=== PATIENT | female | born 1985 | race African-American/Black ===

== ENCOUNTER 2025-05-12 10:33 | Emergency (ER) | payer OTHER ==
[~2025-05-12] VITALS: Ht 167.6 cm; Wt 103.0 kg
[2025-05-12] VITALS (9 sets, daily range): BP systolic 148–161; BP diastolic 89–99; PULSE 22–64; RESP 22–24; TEMP 36.6696–36.83628; O2SAT 98–99
[2025-05-12 11:29] LABS: BASOPHILS % 0.7 % (0.0-2.0); EOSINOPHILS % 4.6 % (0.0-5.0); HEMATOCRIT. 35.0 % (36.0-48.0); HEMOGLOBIN. 11.5 g/dL (12.0-16.0); LYMPHOCYTES % 11.7 % (20.0-50.0); MEAN PLATELET VOLUME 8.3 fl (7.4-10.4); MONOCYTES % 8.3 % (2.0-8.0); NEUTROPHILS % 74.7 % (40.0-76.0); PLATELET 210 x1000/uL (130-400); RED BLOOD CELL COUNT 3.38 mill/uL (4.2-5.4); RED CELL DISTRIBUTION WIDTH 15.2 % (11.6-14.6)
[2025-05-12] MEDS ORDERED: CLONIDINE 0.3MG TABLET PO ONE (11:45)
[2025-05-12 11:48] LABS: UREA NITROGEN BLOOD 83 mg/dL (9-23)
[2025-05-12 11:49] LABS: PROTEIN TOTAL 7.6 g/dL (6.0-8.3)
[2025-05-12 11:50] LABS: ASPARTATE AMINOTRANSFERASE 9 IU/L (<34); BILIRUBIN DIRECT < 0.1 mg/dL (<=3.0)
[2025-05-12 11:51] LABS: BILIRUBIN TOTAL 0.3 mg/dL (0.1-1.0)
[2025-05-12] MEDS: AMLODIPINE 10MG TABLET PO ONE (11:53)
[2025-05-12] MEDS: CLONIDINE 0.1MG TABLET PO NR (11:54)
[2025-05-12 11:57] LABS: TROPONIN I HIGH SENSITIVITY 44 ng/L (3.0-34)
[2025-05-12 11:58] LABS: CREATININE 15.9 mg/dL (0.6-1.0)
[2025-05-12 15:58] LABS: HEPATITIS A AB IGM NEGATIVE (Negative)
[2025-05-12 15:59] LABS: HEPATITIS B CORE AB IGM NEGATIVE (Negative); HEPATITIS C AB NON REACTIVE (Neg) (Negative)
[2025-05-12] MEDS ORDERED: DOCUSATE SODIUM 100MG CAPSULE PO PRN (16:00)
[2025-05-12] MEDS ORDERED: GUAIFENESIN 200MG/10ML SUGAR FREE UDC PO PRN (16:00)
[2025-05-12] MEDS ORDERED: MAGNESIUM/ALUMINUM HYDROXIDE/SIMETHICONE 30ML UDC PO PRN (16:00)
[2025-05-12] MEDS ORDERED: ONDANSETRON HCL 4MG/2ML INJ IV PRN (16:00)
[2025-05-12] MEDS ORDERED: NA PHOS,M-B/NA PHOS,DI-BA ENEMA 118ML PR PRN (16:00)
[2025-05-12] MEDS ORDERED: IPRATROPIUM/ALBUTEROL 0.5-3(2.5)MG/3ML NEB HHN PRN (16:00)
[2025-05-12] MEDS ORDERED: ACETAMINOPHEN 325MG TABLET PO PRN ×2 (16:00)
[2025-05-12] MEDS ORDERED: HYDRALAZINE 20MG/ML VIAL IV PRN (16:15)
[2025-05-12] MEDS ORDERED: SEVELAMER CARBONATE 800 MG TABLET PO SCH (17:00)
[2025-05-12] MEDS ORDERED: ENOXAPARIN 30MG/0.3ML SYR SUBCUT SCH (18:00)
[2025-05-12] MEDS ORDERED: CLONIDINE 0.2MG TABLET PO SCH (21:00)
[2025-05-12] MEDS ORDERED: ATORVASTATIN CALCIUM 40MG TABLET PO SCH (21:00)
[2025-05-13] MEDS ORDERED: FAMOTIDINE 20MG/2ML VIAL IV SCH (09:00)
[2025-05-13] MEDS ORDERED: AMLODIPINE 10MG TABLET PO SCH (09:00)
[2025-05-13] MEDS ORDERED: ASPIRIN 81MG EC TABLET PO SCH (09:00)
== END 2025-05-12 17:25 | disposition left against medical advice (07) ==
LOC: ER 10:33 → EDBEDREQ 14:23 → EDBEDREQTM 14:23 → ENRESERV 15:19 → CANBEDREQ 17:21 → ER 17:25
DX: I13.2 Hypertensive heart and chronic kidney disease with heart failure and with stage 5 chronic kidney disease, or end stage renal disease (principal); E11.22 Type 2 diabetes mellitus with diabetic chronic kidney disease; R06.02 Shortness of breath; D53.9 Nutritional anemia, unspecified; B34.9 Viral infection, unspecified; E66.01 Morbid (severe) obesity due to excess calories; J44.9 Chronic obstructive pulmonary disease, unspecified; N18.6 End stage renal disease; Z68.36 Body mass index [BMI] 36.0-36.9, adult; Z79.01 Long term (current) use of anticoagulants; Z79.899 Other long term (current) drug therapy; Z83.3 Family history of diabetes mellitus; Z86.718 Personal history of other venous thrombosis and embolism; Z88.1 Allergy status to other antibiotic agents; Z88.5 Allergy status to narcotic agent; Z90.49 Acquired absence of other specified parts of digestive tract; Z91.158 Patient's noncompliance with renal dialysis for other reason; Z99.2 Dependence on renal dialysis
CPT/HCPCS: 36415; 71045; 80048; 80076; 83880; 84484; 85025; 86705; 86709; 87340; 90935; 93005; 99291

== ENCOUNTER 2025-05-16 09:12 | Emergency (ER) | payer MEDICAID, OTHER ==
[~2025-05-16] VITALS: Ht 172.7 cm; Wt 100.0 kg
[2025-05-16 09:13] VITALS: O2SAT 100
[2025-05-16] MEDS: NITROGLYCERIN OINT 1GM/INCH UDPKT TD SCH (10:00)
[2025-05-16] MEDS: ACETAMINOPHEN 500MG TABLET PO SCH (10:00)
[2025-05-16 10:08] LABS: BASOPHILS % 1.0 % (0.0-2.0); EOSINOPHILS % 7.9 % (0.0-5.0); HEMATOCRIT. 33.6 % (36.0-48.0); HEMOGLOBIN. 11.2 g/dL (12.0-16.0); LYMPHOCYTES % 18.0 % (20.0-50.0); MEAN PLATELET VOLUME 9.0 fl (7.4-10.4); MONOCYTES % 5.6 % (2.0-8.0); NEUTROPHILS % 67.5 % (40.0-76.0); PLATELET 254 x1000/uL (130-400); RED BLOOD CELL COUNT 3.38 mill/uL (4.2-5.4); RED CELL DISTRIBUTION WIDTH 14.8 % (11.6-14.6)
[2025-05-16] MEDS: HYDRALAZINE 20MG/ML VIAL IV SCH ×2 (10:18→11:12)
[2025-05-16 10:20] LABS: UREA NITROGEN BLOOD 78.0 mg/dL (9-23)
[2025-05-16 10:24] LABS: CREATININE 15.0 mg/dL (0.6-1.0); TROPONIN I HIGH SENSITIVITY 47 ng/L (3.0-34)
[2025-05-16] MEDS: CLONIDINE 0.1MG TABLET PO SCH (11:13)
[2025-05-16] MEDS ORDERED: ONDANSETRON HCL 4MG/2ML INJ IV PRN (11:15)
[2025-05-16] MEDS ORDERED: MAGNESIUM/ALUMINUM HYDROXIDE/SIMETHICONE 30ML UDC PO PRN (11:15)
[2025-05-16] MEDS ORDERED: LABETALOL 5MG/ML 4ML INJ IV PRN (11:15)
[2025-05-16] MEDS ORDERED: CLONIDINE 0.2MG TABLET PO PRN (11:15)
[2025-05-16] MEDS ORDERED: ZOLPIDEM TARTRATE 5MG TABLET PO PRN (11:15)
[2025-05-16] MEDS ORDERED: MORPHINE SULFATE 2 MG/ML INJ (NOT FOR IM USE) IV PRN (11:15)
[2025-05-16] MEDS ORDERED: HYDROCODONE/ACETAMINOPHEN 5/325MG TABLET PO PRN (11:15)
[2025-05-16] MEDS ORDERED: ACETAMINOPHEN 325MG TABLET PO PRN (11:15)
[2025-05-16] MEDS ORDERED: NALOXONE HCL 0.4MG/ML VIAL IV PRN (11:30)
[2025-05-16 11:45] VITALS: BP 240/122; PULSE 98; RESP 17; TEMP 36.8; O2SAT 100
[2025-05-16] MEDS ORDERED: NIFEDIPINE XL 60MG TAB PO SCH (12:00)
[2025-05-16] MEDS ORDERED: HYDRALAZINE HCL 50MG TABLET PO SCH (14:00)
[2025-05-16 14:38] LABS: PHOSPHORUS 6.8 mg/dL (2.5-4.9)
[2025-05-16 15:15] LABS: HEPATITIS A AB IGM NEGATIVE (Negative)
[2025-05-16 15:16] LABS: HEPATITIS B CORE AB IGM NEGATIVE (Negative); HEPATITIS C AB NON REACTIVE (Neg) (Negative)
[2025-05-16] MEDS ORDERED: ENOXAPARIN 30MG/0.3ML SYR SUBCUT SCH (21:00)
[2025-05-17] MEDS ORDERED: PANTOPRAZOLE SODIUM 40 MG/VIAL IV SCH (09:00)
== END 2025-05-16 11:46 | disposition left against medical advice (07) ==
LOC: ER 09:12 → EDBEDREQ 11:03 → EDBEDREQTM 11:03 → ER 11:46 → CMPBEDREQ 12:37
DX: I16.9 Hypertensive crisis, unspecified (principal); I13.2 Hypertensive heart and chronic kidney disease with heart failure and with stage 5 chronic kidney disease, or end stage renal disease; N18.6 End stage renal disease; Z88.5 Allergy status to narcotic agent; Z88.1 Allergy status to other antibiotic agents; Z99.2 Dependence on renal dialysis
CPT/HCPCS: 99291; 96374; 80048; 83880; 83735; 84100; 85025; 87340; 84484; 36415; 86709; 71045; 93005; 86705; J0360